=== PATIENT | female | born 1985 | race African-American/Black ===

== ENCOUNTER 2016-07-07 09:23 | Emergency (ER) | payer SELFPAY ==
[2016-07-07 10:49] LABS: ABSOLUTE LYMPHOCYTES (AUTO) 0.6 10^3/uL (0.5-4.7); ABSOLUTE MONOCYTES (AUTO) 0.4 10^3/uL (0.1-1.4); ABSOLUTE NEUT (AUTO) 1.3 10^3/uL (1.7-8.2); BASOPHILS % (AUTO) 0.5 % (0-2); EOSINOPHILS % (AUTO) 1.2 % (0-6); HEMATOCRIT 36.4 % (36.0-47.0); HGB HCT DIFFERENCE -0.4; LYMPHOCYTES % (AUTO) 25.1 % (13-45); MEAN CORPUSCULAR HGB CONC 32.8 g/dL (32.0-36.0); MEAN CORPUSCULAR VOLUME 85 fl (80-97); MONOCYTES % (AUTO) 16.9 % (3-13); RED BLOOD COUNT 4.26 10^6/uL (3.72-5.28); RED CELL DISTRIBUTION WIDTH 12.2 % (11.5-14.0); SEGMENTED NEUTROPHILS % (AUTO) 56.3 % (42-78); WHITE BLOOD COUNT 2.3 10^3/uL (4.0-10.5)
[2016-07-07 11:00] LABS: ANION GAP 10 (5-19); BLOOD UREA NITROGEN 11 mg/dL (7-20); CALCIUM 9.3 mg/dL (8.4-10.2); CARBON DIOXIDE 27 mmol/L (22-30); CHLORIDE 105 mmol/L (98-107); CREATININE RESULT 0.75 mg/dL (0.52-1.25); GLUCOSE 86 mg/dL (75-110); POTASSIUM 3.6 mmol/L (3.6-5.0); SODIUM 142.3 mmol/L (137-145)
[2016-07-07 11:07] LABS: APPEARANCE,URINE CLEAR; BILIRUBIN,URINE NEGATIVE (NEGATIVE); GLUCOSE, URINE NEGATIVE (NEGATIVE); KETONES,URINE NEGATIVE (NEGATIVE); LEUKOCYTE ESTERASE,URINE NEGATIVE (NEGATIVE); NITRITE,URINE NEGATIVE (NEGATIVE); PROTEIN,URINE NEGATIVE (NEGATIVE); URINE SPECIFIC GRAVITY 1.028; UROBILINOGEN,URINE NEGATIVE mg/dL (<2.0)
--- NOTE | 2016-07-07 11:57 | ER Document Report ---
ED General - General Chief Complaint: Vag Bleeding, +preg <12wks Stated Complaint: PELVIC PAIN TRAVEL OUTSIDE OF THE [place] IN LAST 30 DAYS: No - HPI Patient complains to provider of: vaginal bleeding possible Notes: Patient coming in after having vaginal bleeding after having sex this morning. Patient states that she is more likely as that she took a test at home 2 months ago has not had a cycle since that time pressure test was positive. Patient is a she is currently . Patient denies any OB/ [facility] [employer] [facility] care. Patient otherwise denies any trauma denies fevers chills nausea vomiting diarrhea. Patient also is concerned about 2 lymph nodes that are underneath the left axilla and right groin region at the present for greater than a month. - Related Data Allergies/Adverse Reactions: latex [Latex] Allergy (Verified 07/07/16 09:24) Past Medical History - Social History Smoking Status: Never Smoker Chew tobacco use (# tins/day): No Drug Abuse: Marijuana Family History: Reviewed & Not Pertinent Patient has suicidal ideation: No Patient has homicidal ideation: No Pulmonary Medical History: Reports: Hx Asthma Renal/ Medical History: Denies: Hx Peritoneal Dialysis Past Surgical History: Reports: Hx Section, Hx Cholecystectomy Review of Systems - Review of Systems Constitutional: No symptoms reported EENT: No symptoms reported Cardiovascular: No symptoms reported Respiratory: No symptoms reported Gastrointestinal: No symptoms reported Genitourinary: No symptoms reported Female Genitourinary: Vaginal bleeding Musculoskeletal: No symptoms reported Skin: No symptoms reported Hematologic/Lymphatic: No symptoms reported Neurological/Psychological: No symptoms reported -: Yes All other systems reviewed and negative Physical Exam - Vital signs Vitals: Temp Pulse Resp BP Pulse Ox 98.3 F 88 16 119/64 99 07/07/16 09:30 07/07/16 09:30 07/07/16 09:30 07/07/16 09:30 07/07/16 09:30 Interpretation: Normal - General General appearance: Appears well, Alert - HEENT Head: Normocephalic, Atraumatic Eyes: Normal Pupils: PERRL - Respiratory Respiratory status: No respiratory distress Chest status: Nontender Breath sounds: Normal Chest palpation: Normal - Cardiovascular Rhythm: Regular Heart sounds: Normal auscultation Murmur: No - Abdominal Inspection: Normal Distension: No distension Bowel sounds: Normal Tenderness: Nontender Organomegaly: No organomegaly - Back Back: Normal, Nontender - Extremities General upper extremity: Normal inspection, Nontender, Normal color, Normal ROM , Normal temperature General lower extremity: Normal inspection, Nontender, Normal color, Normal ROM , Normal temperature, Normal weight bearing. No: Sylvain's sign - Neurological Neuro grossly intact: Yes Cognition: Normal Orientation: AAOx4 David Coma Scale Eye Opening: Spontaneous [place] Coma Scale Verbal: Oriented [place] Coma Scale Motor: Obeys Commands [place] Coma Scale Total: 15 Speech: Normal Motor strength normal: LUE, RUE, LLE, RLE Sensory: Normal - Psychological Associated symptoms: Normal affect, Normal mood - Skin Skin Temperature: Warm Skin Moisture: Dry Skin Color: Normal Notes: Patient has a freely mobile millimeters tender lymph node in the left axillary region approximately 1 similar by 1 cm. No other corresponding lymph nodes lymphadenopathy. Patient has a freely mobile millimeters tender lymph node in the right inguinal region region approximately 1 similar by 1 cm. No other corresponding lymph nodes lymphadenopathy. Course - Re-evaluation Re-evalutation: 07/07/16 15:00 test is negative. Patient's ultrasounds dated for torsion or any other acute findings. Patient will be discharged home follow-up with [facility]. Evaluation of lymph nodes shows no critical etiology patient was encouraged to have this monitored by PCP - Vital Signs Vital signs: Temp Pulse Resp BP Pulse Ox 98.4 F 80 16 110/60 100 07/07/16 12:28 07/07/16 12:28 07/07/16 12:28 07/07/16 12:28 07/07/16 12:28 - Laboratory Result Diagrams: 07/07/16 10:35 07/07/16 10:35 Laboratory results interpreted by me: 07/07/16 07/07/16 10:35 10:35 WBC 2.3 L Monocytes % 16.9 H Absolute Neutrophils 1.3 L Urine Blood SMALL H Urine Ascorbic Acid 40 H Discharge - Discharge Clinical Impression: Vaginal bleeding, Lymph node enlargement Condition: Good Disposition: HOME, SELF-CARE Instructions: Vaginal Bleeding ([facility]), Lymphadenopathy ([facility]) Additional Instructions: Please follow-up with your [facility]ER or primary care physician. Return to ER if symptoms worsen. The lumps underneath your arm and groin are consistent with this reactive lymph nodes. These need to be continually monitored by your primary care physician.
[2016-07-07 12:29] VITALS: BP 110/60
== END 2016-07-07 12:29 | disposition home or self-care (01) ==
LOC: ER 09:23
DX: N93.9 Abnormal uterine and vaginal bleeding, unspecified (principal); R59.0 Localized enlarged lymph nodes; J45.909 Unspecified asthma, uncomplicated; Z91.040 Latex allergy status
CPT/HCPCS: 36415; 76830; 80048; 81001; 84702; 85025; 86900; 86901; 93976; 99284